=== PATIENT | male | born 1965 | race Caucasian/White ===

== ENCOUNTER 2024-06-12 09:26 | Observation (INO) ==
[2024-06-12] MEDS: NS 0.9% 1000 ml BAG 1,000 ML IV ONE (09:48)
[2024-06-12 09:57] LABS: ABS Basophils 0.1 10^3/uL (0.0-0.1); ABS Lymphocytes 1.2 10^3/uL (1.0-4.8); ABS Monocytes 0.3 10^3/uL (0.0-1.1); ABS Neutrophils 7.7 10^3/uL (1.5-7.6); ABS Nucleated RBC 0.01 10^3/ul; Eosinophil % 0.4 %; Hematocrit 45.8 % (38-53); Hemoglobin 15.9 g/dL (13.2-16.3); Lymphocyte % 12.7 %; Mean Corpuscular Hemoglobin 31.1 pg (27-33); Mean Corpuscular Hgb Conc 34.6 g/dL (31-36); Mean Corpuscular Volume 89.7 fL (80-97); Mean Platelet Volume 7.6 fL (7.5-11.2); Nucleated Red Blood Cells % 0.1 %/100WBC (0.0-0.8); Platelet Count 271 10^3/uL (150-450); Red Cell Distribution Width 13.3 % (12-17); White Blood Count 9.2 10^3/uL (3.6-10.2)
[2024-06-12 10:07] LABS: INR 1.07 (0.83-1.13)
[2024-06-12 10:38] LABS: Albumin/Globulin Ratio 1.7 (1-3); Creatinine, Serum 1.09 mg/dL (0.67-1.17); Globulin 2.3 g/dL (2-4); Potassium 3.7 mmol/L (3.5-5.0); Total Bilirubin 0.7 mg/dL (0.2-1.0); Total Protein 6.3 g/dL (6.4-8.9); eGFR CKD-EPI 77.2 (>60)
[2024-06-12 11:33] LABS: High Sensitivity Troponin 1 Hr 27 pg/mL (<20)
[2024-06-12] MEDS ORDERED: Dextrose 50% Syringe 50 ml 25 GM/50 ML SYRINGE IV PUSH PRN (16:31)
[2024-06-12 18:47] LABS: High Sensitivity Troponin 1 Hr 30 pg/mL (<20)
[2024-06-12 21:11] LABS: High Sensitivity Troponin 3 Hr 24 pg/mL (<20)
[2024-06-12] MEDS: Enoxaparin 40 MG/0.4 ML SYR SUBCUT SCH (21:13)
[2024-06-13 06:07] LABS: ABS Lymphocytes 1.5 10^3/uL (1.0-4.8); ABS Monocytes 0.2 10^3/uL (0.0-1.1); ABS Neutrophils 8.6 10^3/uL (1.5-7.6); ABS Nucleated RBC 0.01 10^3/ul; Eosinophil % 0.2 %; Hematocrit 47.3 % (38-53); Hemoglobin 15.9 g/dL (13.2-16.3); Lymphocyte % 14.5 %; Mean Corpuscular Hemoglobin 31.2 pg (27-33); Mean Corpuscular Hgb Conc 33.7 g/dL (31-36); Mean Corpuscular Volume 92.6 fL (80-97); Mean Platelet Volume 7.8 fL (7.5-11.2); Nucleated Red Blood Cells % 0.1 %/100WBC (0.0-0.8); Platelet Count 270 10^3/uL (150-450); Red Cell Distribution Width 13.3 % (12-17); White Blood Count 10.3 10^3/uL (3.6-10.2)
[2024-06-13 06:21] LABS: Anion Gap 11 mmol/L (2-16); Blood Urea Nitrogen 12 mg/dL (6-24); CO2 Carbon Dioxide 22 mmol/L (22-32); Calcium 9.1 mg/dL (8.6-10.3); Chloride 100 mmol/L (101-111); Creatinine, Serum 0.85 mg/dL (0.67-1.17); Glucose 167 mg/dL (70-100); Magnesium 1.8 mg/dL (1.9-2.7); Sodium 133 mmol/L (135-145); eGFR CKD-EPI 98.9 (>60)
[2024-06-13] MEDS: Aspirin EC 81 mg TAB.EC (enteric coated) PO SCH (08:49)
[2024-06-13] MEDS: Sulfur Hexaflouride MICROSPHR 25 MG VIAL IV ONE ×2 (08:50)
[2024-06-13] MEDS: Magnesium Sulfate 2 gm BAG 2 GM/50 ML BAG IVPB ONE (08:52)
[2024-06-13 15:58] VITALS: BP 139/79
== END 2024-06-13 17:10 | disposition home or self-care (01) ==
LOC: EDHOLD 09:26 → ED 09:26 → MEDTELE 16:48
PROVIDERS: ADMIT Internal Medicine; ATTEND Internal Medicine